=== PATIENT | male | born 2000 | race Caucasian/White ===

== ENCOUNTER 2021-11-12 14:03 | Emergency (ER) | payer SELFPAY ==
[2021-11-12 14:15] VITALS: BP 128/74; PULSE 76; RESP 18; TEMP 98.8; BMI 20.5
[2021-11-12] MEDS ORDERED: KETOROLAC TROMETHAMINE 30 MG/1 ML VIAL IVPUSH ONE (14:42)
[2021-11-12] MEDS ORDERED: SODIUM CHLORIDE 0.9% 500 ML INFUS.BAG IV ONE (14:42)
[2021-11-12] MEDS ORDERED: ONDANSETRON 4 MG/2 ML VIAL IVPUSH PRN (14:42)
[2021-11-12] MEDS ORDERED: KETOROLAC TROMETHAMINE 30 MG/1 ML VIAL ONE ×2 (15:00→15:10)
[2021-11-12] MEDS ORDERED: ONDANSETRON 4 MG/2 ML VIAL ONE (15:10)
[2021-11-12 15:36] LABS: BASO % 0.3 % (0-2.0); EOS % 0.4 % (0-4.5); HEMATOCRIT 49.2 % (35.4-49); HEMOGLOBIN 17.1 GM/dL (11.7-16.9); LYMPH % 22.8 % (8-40); MCHC 34.8 g/dl (32.0-35.9); MEAN CELL VOLUME 91.9 fl (80-96); MONO % 5.3 % (3.8-10.2); NEUT % 71.2 % (42.8-82.8); PLATELET COUNT 206 10^3/uL (134-434); RBC 5.35 M/mm3 (4.00-5.60); WHITE BLOOD COUNT 6.7 K/mm3 (4.0-10.0)
[2021-11-12 15:57] LABS: ALBUMIN 4.6 g/dl (3.4-5.0); CALCIUM 9.6 mg/dL (8.5-10.1)
[2021-11-12 16:00] LABS: CREATININE 0.8 mg/dL (0.55-1.3)
[2021-11-12 16:02] LABS: BILIRUBIN,TOTAL 1.1 mg/dL (0.2-1)
== END 2021-11-12 17:12 | disposition home or self-care (01) ==
LOC: JER 14:03
PROC: 3E0333Z Introduction of Anti-inflammatory into Peripheral Vein, Percutaneous Approach (ICD-10-PCS; principal; 2021-11-12)
PROC: 3E033GC Introduction of Other Therapeutic Substance into Peripheral Vein, Percutaneous Approach (ICD-10-PCS; 2021-11-12)
DX: R10.13 Epigastric pain (principal)
CPT/HCPCS: 36415; 76705-TC; 80053; 83690; 85025; 99284-25